=== PATIENT | female | born 1965 | race African-American/Black ===

== ENCOUNTER 2019-07-21 20:38 | Inpatient (IN) | payer OTHER ==
[~2019-07-21] VITALS: Ht 165.1 cm; Wt 77.1 kg
[2019-07-21 21:10] LABS: BASOPHILS % 0.9 % (0.0-2.0); EOSINOPHILS % 0.8 % (0.0-5.0); HEMATOCRIT. 48.8 % (36.0-48.0); HEMOGLOBIN. 16.2 g/dL (12.0-16.0); LYMPHOCYTES % 40.1 % (20.0-50.0); MEAN CORPUSCULAR VOLUME 84.3 fL (81.0-99.0); MONOCYTES % 10.2 % (2.0-8.0); PLATELET 299 x1000/uL (130-400); RED BLOOD CELL COUNT 5.79 mill/uL (4.2-5.4); RED CELL DISTRIBUTION WIDTH 15.9 % (11.6-14.6)
[2019-07-21 21:11] LABS: INR 1.1; PROTHROMBIN TIME 11.4 sec (9.6-11.0)
[2019-07-21] MEDS ORDERED: ALTEPLASE 100MG/VIAL IV STA (21:11)
[2019-07-21] MEDS ORDERED: ALTEPLASE IV STA (21:11)
[2019-07-21] MEDS ORDERED: ALTEPLASE IV NR (21:30)
[2019-07-21] MEDS ORDERED: ALTEPLASE 100MG/VIAL IV NR (21:30)
[2019-07-21] MEDS ORDERED: *NO ASPIRIN X 24 HOURS XX SCH (21:40)
[2019-07-21 21:51] LABS: CHLORIDE 106 mEq/L (98-107)
[2019-07-21 21:55] LABS: ETHANOL BLOOD < 10 mg/dL
[2019-07-21 21:57] LABS: LDL CHOLESTEROL 144 mg/dL (5-100)
[2019-07-21] MEDS ORDERED: CLONIDINE 0.1MG TABLET PO PRN (23:30)
[2019-07-21] MEDS ORDERED: HYDROMORPHONE HCL/PF 2MG/ML CPJ IV PRN (23:30)
[2019-07-21] MEDS ORDERED: DOCUSATE SODIUM 100MG CAPSULE PO PRN (23:30)
[2019-07-21] MEDS ORDERED: HYDROCODONE/ACETAMINOPHEN 5/325MG TABLET PO PRN (23:30)
[2019-07-21] MEDS ORDERED: MAGNESIUM/ALUMINUM HYDROXIDE/SIMETHICONE 30ML UDC PO PRN (23:30)
[2019-07-21] MEDS ORDERED: ONDANSETRON HCL 4MG/2ML INJ IV PRN (23:30)
[2019-07-21] MEDS ORDERED: GUAIFENESIN 200MG/10ML SUGAR FREE UDC PO PRN (23:30)
[2019-07-21] MEDS ORDERED: ACETAMINOPHEN 325MG TABLET PO PRN (23:30)
[2019-07-22] VITALS (29 sets, daily range): BP systolic 94–141; BP diastolic 42–87
[2019-07-22] MEDS ORDERED: ZOLP10TA2 PO (04:20)
[2019-07-22] MEDS ORDERED: NADO40TA19 PO (04:20)
[2019-07-22] MEDS ORDERED: ASPI-986 PO (04:20)
[2019-07-22] MEDS ORDERED: FURO80TA87 PO (04:20)
[2019-07-22] MEDS ORDERED: METF-414 PO (04:20)
[2019-07-22 05:55] LABS: BASOPHILS % 0.4 % (0.0-2.0); EOSINOPHILS % 0.3 % (0.0-5.0); HEMATOCRIT. 42.4 % (36.0-48.0); HEMOGLOBIN. 13.8 g/dL (12.0-16.0); INR 1.3; LYMPHOCYTES % 28.1 % (20.0-50.0); MEAN CORPUSCULAR HEMOGLOBIN 27.7 pg (28.0-32.0); MEAN PLATELET VOLUME 8.7 fl (7.4-10.4); MONOCYTES % 10.6 % (2.0-8.0); NEUTROPHILS % 60.6 % (40.0-76.0); PLATELET 220 x1000/uL (130-400); PROTHROMBIN TIME 14.5 sec (9.6-11.0); RED BLOOD CELL COUNT 4.98 mill/uL (4.2-5.4); RED CELL DISTRIBUTION WIDTH 15.6 % (11.6-14.6)
[2019-07-22 06:03] LABS: CHLORIDE 108 mEq/L (98-107)
[2019-07-22] MEDS: FUROSEMIDE 40MG TABLET PO SCH (18:07)
[2019-07-22] MEDS: METFORMIN HCL 500MG TABLET PO SCH (18:07)
[2019-07-22] MEDS ORDERED: ATORVASTATIN CALCIUM 40MG TABLET PO SCH ×2 (21:00)
[2019-07-22] MEDS: ATORVASTATIN CALCIUM 40MG TABLET PO SCH (22:20)
[2019-07-23] VITALS (9 sets, daily range): BP systolic 92–110; BP diastolic 59–75
[2019-07-23] MEDS: FUROSEMIDE 40MG TABLET PO SCH ×2 (05:31→17:00)
[2019-07-23 06:53] LABS: INR 1.3; PROTHROMBIN TIME 13.9 sec (9.6-11.0)
[2019-07-23 07:11] LABS: CHLORIDE 108 mEq/L (98-107)
[2019-07-23 07:13] LABS: BASOPHILS % 0.5 % (0.0-2.0); EOSINOPHILS % 1.4 % (0.0-5.0); HEMATOCRIT. 41.6 % (36.0-48.0); HEMOGLOBIN. 13.6 g/dL (12.0-16.0); MEAN CORPUSCULAR HEMOGLOBIN 27.5 pg (28.0-32.0); MEAN CORPUSCULAR VOLUME 83.9 fL (81.0-99.0); MEAN PLATELET VOLUME 8.6 fl (7.4-10.4); MONOCYTES % 10.3 % (2.0-8.0); NEUTROPHILS % 55.8 % (40.0-76.0); PLATELET 208 x1000/uL (130-400); RED BLOOD CELL COUNT 4.95 mill/uL (4.2-5.4); RED CELL DISTRIBUTION WIDTH 15.7 % (11.6-14.6)
[2019-07-23 07:21] LABS: PHOSPHORUS 3.6 mg/dL (2.5-4.9)
[2019-07-23] MEDS ORDERED: ASPIRIN 81MG EC TABLET PO SCH (09:00)
[2019-07-23] MEDS ORDERED: CLOPIDOGREL 75MG TABLET PO SCH (09:00)
[2019-07-23] MEDS ORDERED: ATORVASTATIN CALCIUM 40MG TABLET PO SCH (09:00)
[2019-07-23] MEDS: METFORMIN HCL 500MG TABLET PO SCH ×2 (09:42→16:59)
[2019-07-23] MEDS: APIXABAN 5 MG TABLET PO SCH ×2 (11:55→16:59)
[2019-07-23] MEDS: ATORVASTATIN CALCIUM 40MG TABLET PO SCH (20:57)
[2019-07-24] VITALS: BP 100/71
[2019-07-24 04:00] VITALS: BP 102/56
[2019-07-24] MEDS: FUROSEMIDE 40MG TABLET PO SCH (06:07)
[2019-07-24] MEDS: METFORMIN HCL 500MG TABLET PO SCH (07:15)
[2019-07-24] MEDS: APIXABAN 5 MG TABLET PO SCH (09:00)
== END 2019-07-24 15:30 | disposition home or self-care (01) | DRG 62 ==
LOC: ER 20:38 → EDBEDREQSVC 23:12 → EDBEDREQ 23:19 → EDBEDREQTM 23:19 → CVICU 23:46 → ENRESERV 07-22 00:05 → 5WST 07-23 03:50
PROVIDERS: ADMIT Hospitalist; ATTEND Hospitalist
PROC: 3E03317 Introduction of Other Thrombolytic into Peripheral Vein, Percutaneous Approach (ICD-10-PCS; principal; 2019-07-21)
PROC: 4A00X4Z Measurement of Central Nervous Electrical Activity, External Approach (ICD-10-PCS; 2019-07-23)
DX: I63.9 Cerebral infarction, unspecified (principal); I42.2 Other hypertrophic cardiomyopathy; I48.92 Unspecified atrial flutter; N17.9 Acute kidney failure, unspecified; D68.59 Other primary thrombophilia; G81.91 Hemiplegia, unspecified affecting right dominant side; I42.9 Cardiomyopathy, unspecified; E11.9 Type 2 diabetes mellitus without complications; E78.5 Hyperlipidemia, unspecified; I10 Essential (primary) hypertension; I27.20 Pulmonary hypertension, unspecified; Z95.810 Presence of automatic (implantable) cardiac defibrillator; Z79.01 Long term (current) use of anticoagulants; Z79.82 Long term (current) use of aspirin; Z79.84 Long term (current) use of oral hypoglycemic drugs; Z79.899 Other long term (current) drug therapy
CPT/HCPCS: 36415; 71045; 80053; 80320; 82465; 83721; 83735; 83880; 84100; 84484; 85025; 92610; 93005; 93306; 93880; 93970; 95816; 97110; 97116; 97162; 97165; 99291; J2997; G0480